=== PATIENT | male | born 1975 | race African-American/Black ===

== ENCOUNTER 2017-10-15 19:31 | Emergency (ER) | payer BC ==
[~2017-10-15] VITALS: Ht 170.2 cm; Wt 70.3 kg
[~2017-10-15 19:31] MED LIST: LEXAPRO20 MG ORAL
[2017-10-15 19:43] VITALS: BP 128/89
[2017-10-15] MEDS ORDERED: LORazepam Inj 2mg/ml 1ml IV ONE (20:00)
[2017-10-15 21:03] VITALS: BP 135/91
--- NOTE | 2017-10-15 21:03 | Diagnostic Imaging Report ---
EXAM: XR Chest, 1 View CLINICAL HISTORY: CP TECHNIQUE: Frontal view of the chest. COMPARISON: No relevant prior studies available. FINDINGS: Lungs: Unremarkable. No consolidation. Pleural space: Unremarkable. No pneumothorax. Heart: Unremarkable. No cardiomegaly. Mediastinum: Unremarkable. Bones/joints: Unremarkable. IMPRESSION: Unremarkable frontal view of the chest.
[2017-10-15 21:08] LABS: APPEARANCE,URINE CLEAR; BASOPHILS % (AUTO) 1.1 % (0.0-2.0); BILIRUBIN, URINE NEGATIVE (NEGATIVE); EOSINOPHILS % (AUTO) 0.5 % (0.0-3.0); GLUCOSE, URINE (UA) NEGATIVE (NEGATIVE); HEMATOCRIT 46.1 % (42.0-52.0); HEMOGLOBIN 16.4 G/DL (14.2-18.0); KETONES,URINE NEGATIVE (NEGATIVE); LEUKOCYTE ESTERASE ,URINE 1+ (NEGATIVE); LYMPHOCYTES % (AUTO) 38.8 % (20.0-45.0); MEAN CORPUSCULAR VOLUME 95 FL (80-99); NEUTROPHILS % (AUTO) 54.7 % (45.0-75.0); NITRITE,URINE NEGATIVE (NEGATIVE); PH,URINE 7 (4.5-8.0); PLATELET COUNT 314 K/UL (150-450); PROTEIN,URINE NEGATIVE (NEGATIVE); RED BLOOD COUNT 4.88 M/UL (4.70-6.10); RED CELL DISTRIBUTION WIDTH 11.6 % (11.6-14.8); UROBILINOGEN,URINE 1 MG/DL (0.0-1.0); WHITE BLOOD COUNT 9.3 K/UL (4.8-10.8)
[2017-10-15 21:10] LABS: ANION GAP 8 mmol/L (5-15); BLOOD UREA NITROGEN 9 mg/dL (7-18); CARBON DIOXIDE 27 MMOL/L (21-32); CHLORIDE 103 MMOL/L (98-107); COLOR,URINE YELLOW; CREATININE 1.5 MG/DL (0.55-1.30); POTASSIUM 3.6 MMOL/L (3.5-5.1); SODIUM 138 MMOL/L (136-145)
[2017-10-15 21:22] LABS: ALANINE AMINOTRANSFERASE 21 U/L (12-78); ALBUMIN 4.1 G/DL (3.4-5.0); ALBUMIN/GLOBULIN RATIO 1.3 (1.0-2.7); ALKALINE PHOSPHATASE 64 U/L (46-116); ASPARTATE AMINO TRANSFERASE 15 U/L (15-37); BILIRUBIN,TOTAL 0.6 MG/DL (0.2-1.0)
[2017-10-15 22:29] VITALS: BP 121/83
--- NOTE | 2017-10-15 22:38 | Emergency Room Report ---
History of Present Illness General Chief Complaint: General Complaint Source: Patient Present Illness HPI Patient with uncontrolled anxiety. Recent break up and now with worsened depression and anxiety. Started using meth 1 week ago. Anxiety has worsened with Meth. Today had dyspnea and palpitations with tingling of hands when started to deep breathe. Transport by EMS. Tachycardia noted. Somewhat better now. Has had anxiety attacks and prior tx with Valium. No SI or HI. Not sleeping well. Patient is HIV + and stable on meds (good CD4 count and neg viral load). Denies fevers, productive cough, chest pain. No headache, rashes, NVD, dysuria. Allergies: Coded Allergies: No Known Allergies (Unverified , 10/15/17) Patient History Past Medical History: see triage record, psych hx, HIV Social History: Reports: smoking, drug use; Denies: alcohol use Social History Narrative recent break up Reviewed Nursing Documentation: PMH: Agreed; PSxH: Agreed Nursing Documentation-PMH History Of Psychiatric Problem: Yes - ANXIETY Review of Systems All Other Systems: negative except mentioned in HPI Physical Exam Vital Signs Date Time Temp Pulse Resp B/P (MAP) Pulse Ox O2 Delivery O2 Flow Rate FiO2 10/15/17 19:27 98.0 117 20 136/78 98 Room Air 98.1 Sp02 EP Interpretation: reviewed, normal General Appearance: alert, GCS 15, mild distress - anxious Eyes: bilateral eye PERRL, bilateral eye other - Exophthalmus ENT: dry mucus membranes Neck: supple, no bony tend Respiratory: chest non-tender, lungs clear, normal breath sounds Cardiovascular #1: no edema, tachycardia Cardiovascular #2: 2+ radial (L) Gastrointestinal: non tender, soft, decreased bowel sounds, scaphoid Genitourinary: no CVA tenderness Neurologic: alert, oriented x3, crepe box tender III-XII nml as tested, motor strength/tone normal, DTRs symmetric, sensory intact, speech normal Psychiatric: no suicidal/homicidal ideation, anxious Skin: normal color, no rash Medical Decision Making Diagnostic Impression: Primary Impression: Hyperventilation syndrome Additional Impressions: Renal insufficiency Substance abuse Situational depression ER Course Patient with dyspnea, anxiety and meth use. DDx: AMI, pneumothorax, arrhythmia , depression, hyperventilation, anxiety, chest wall strain, dehydration amongst others. Exam against PE. Evaluation with EKG, CXR and labs. Treatment with IV hydration, ativan and cardiac observation. With sy and exophthalmos, concern for hyperthyroidism. EKG ST without injury. CXR clear. Labs with + amphetamine, THC. Neg troponin. TSH normal. Improved with treatment. Tachycardia resolved. Discussed hyperventilation, stress, drug use and need for f/u. Has appt tomorrow. Patient stable for outpatient observation and treatment Laboratory Tests Test 10/15/17 20:35 White Blood Count 9.3 K/UL (4.8-10.8) Red Blood Count 4.88 M/UL (4.70-6.10) Hemoglobin 16.4 G/DL (14.2-18.0) Hematocrit 46.1 % (42.0-52.0) Mean Corpuscular Volume 95 FL (80-99) Mean Corpuscular Hemoglobin 33.6 PG (27.0-31.0) H Mean Corpuscular Hemoglobin Concent 35.6 G/DL (32.0-36.0) Red Cell Distribution Width 11.6 % (11.6-14.8) Platelet Count 314 K/UL (150-450) Mean Platelet Volume 6.6 FL (6.5-10.1) Neutrophils (%) (Auto) 54.7 % (45.0-75.0) Lymphocytes (%) (Auto) 38.8 % (20.0-45.0) Monocytes (%) (Auto) 5.0 % (1.0-10.0) Eosinophils (%) (Auto) 0.5 % (0.0-3.0) Basophils (%) (Auto) 1.1 % (0.0-2.0) Urine Color Yellow Urine Appearance Clear Urine pH 7 (4.5-8.0) Urine Specific [place] 1.010 (1.005-1.035) Urine Protein Negative (NEGATIVE) Urine Glucose (UA) Negative (NEGATIVE) Urine Ketones Negative (NEGATIVE) Urine Occult Blood Negative (NEGATIVE) Urine Nitrite Negative (NEGATIVE) Urine Bilirubin Negative (NEGATIVE) Urine Urobilinogen 1 MG/DL (0.0-1.0) H Urine Leukocyte Esterase 1+ (NEGATIVE) H Urine RBC 0-2 /HPF (0 - 0) H Urine WBC 0-2 /HPF (0 - 0) Urine Squamous Epithelial Cells None /LPF (NONE/OCC) Urine Bacteria Few /HPF (NONE) Sodium Level 138 MMOL/L (136-145) Potassium Level 3.6 MMOL/L (3.5-5.1) Chloride Level 103 MMOL/L (98-107) Carbon Dioxide Level 27 MMOL/L (21-32) Anion Gap 8 mmol/L (5-15) Blood Urea Nitrogen 9 mg/dL (7-18) Creatinine 1.5 MG/DL (0.55-1.30) H Estimate Glomerular Filtration Rate 51.8 mL/min (>60) Glucose Level 126 MG/DL (74-106) H Calcium Level 10.0 MG/DL (8.5-10.1) Total Bilirubin 0.6 MG/DL (0.2-1.0) Aspartate Amino Transferase (AST) 15 U/L (15-37) Alanine Aminotransferase (ALT) 21 U/L (12-78) Alkaline Phosphatase 64 U/L (46-116) Troponin I 0.000 ng/mL (0.000-0.056) Total Protein 7.3 G/DL (6.4-8.2) Albumin 4.1 G/DL (3.4-5.0) Globulin 3.2 g/dL Albumin/Globulin Ratio 1.3 (1.0-2.7) Thyroid Stimulating Hormone (TSH) 0.422 uiU/mL (0.358-3.740) Salicylates Level 4.5 ug/mL (2.8-20) Urine Opiates Screen Negative (NEGATIVE) Acetaminophen Level < 2 MCG/ML (10-30) L Urine Barbiturates Screen Negative (NEGATIVE) Phencyclidine (PCP) Screen Negative (NEGATIVE) Urine Amphetamines Screen Positive (NEGATIVE) H Urine Benzodiazepines Screen Negative (NEGATIVE) Urine Cocaine Screen Negative (NEGATIVE) Urine Marijuana (THC) Screen Positive (NEGATIVE) H Serum Alcohol < 3 mg/dL EKG Diagnostic Results Rate: tachycardiac Rhythm: NSR ST Segments: no acute changes Rhythm Strip Diag. Results EP Interpretation: yes Rhythm: no PVC's, no ectopy, other - ST Chest X-Ray Diagnostic Results Chest X-Ray Diagnostic Results : Chest X-Ray Ordered: Yes # of Views/Limited/Complete: 1 View Indication: Other EP Interpretation: Yes Interpretation: no consolidation, no effusion, no pneumothorax Impression: No acute disease Electronically Signed by: Electronically signed by Oscar Cardona MD Last Vital Signs Date Time Temp Pulse Resp B/P (MAP) Pulse Ox O2 Delivery O2 Flow Rate FiO2 10/15/17 22:52 98.1 86 18 121/83 100 Room Air 98.1 Status: improved Disposition: HOME, SELF-CARE Condition: Improved Referrals: NOT CHOSEN BLADIMIR/,REFERRING (PCP) Oscar Cardona M.D. Oct 15, 2017 22:38
[2017-10-15 22:52] VITALS: BP 121/83
--- NOTE | 2017-10-17 18:41 | Cardiology Report ---
APPROVED REPORT EKG Measurement Heart [id number] Sinus tachycardia Minimal voltage criteria for LVH, may be normal variant Borderline ECG
== END 2017-10-15 22:53 | disposition home or self-care (01) ==
LOC: EDBD 19:31 → EMR 21:46
DX: F45.8 Other somatoform disorders (principal); N28.9 Disorder of kidney and ureter, unspecified; F15.10 Other stimulant abuse, uncomplicated; F43.21 Adjustment disorder with depressed mood; F17.200 Nicotine dependence, unspecified, uncomplicated
CPT/HCPCS: 36415; 71045; 80053; 80307; 81003; 84443; 84484; 85025; 93005; 96361; 96374; 99284; G0480; 80329